=== PATIENT | male | born 1990 | race Caucasian/White ===

== ENCOUNTER 2018-03-16 13:33 | Emergency (ER) | payer MEDICAID ==
[~2018-03-16] VITALS: Ht 198.1 cm; Wt 71.9 kg
[~2018-03-16 13:33] MED LIST: CITA-278 PO; CITA-311 PO; CITA20TA19 PO; CLON-527 PO; CLON2TAB PO; DIVA-76 PO; DIVA500T2 PO
[2018-03-16 13:37] VITALS: BP 125/81
[2018-03-16] MEDS ORDERED: CITA20TA19 PO (14:12)
[2018-03-16] MEDS ORDERED: DIVA500T4 PO (14:12)
== END 2018-03-16 14:40 | disposition home or self-care (01) ==
LOC: ER 13:34
DX: Z76.0 Encounter for issue of repeat prescription (principal); Z86.69 Personal history of other diseases of the nervous system and sense organs; Z90.49 Acquired absence of other specified parts of digestive tract; Z56.0 Unemployment, unspecified; Z79.899 Other long term (current) drug therapy
CPT/HCPCS: 99283

== ENCOUNTER 2019-04-04 21:29 | Emergency (ER) | payer MEDICAID ==
[~2019-04-04] VITALS: Ht 185.4 cm; Wt 96.0 kg
[~2019-04-04 21:29] MED LIST changes: -CITA-278 PO; -DIVA-76 PO
[2019-04-04 21:38] VITALS: BP 130/81
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
[2019-04-04] MEDS ORDERED: CITA-311 PO (22:49)
[2019-04-04] MEDS ORDERED: LORazepam 1 MG tablet PO ONE (22:55)
== END 2019-04-04 23:09 | disposition home or self-care (01) ==
LOC: ER 21:30
DX: F43.10 Post-traumatic stress disorder, unspecified (principal); Z76.0 Encounter for issue of repeat prescription; F41.8 Other specified anxiety disorders; F17.200 Nicotine dependence, unspecified, uncomplicated; Z56.0 Unemployment, unspecified; Z87.442 Personal history of urinary calculi; Z79.899 Other long term (current) drug therapy
CPT/HCPCS: 99283

== ENCOUNTER 2019-09-02 09:43 | Inpatient (IN) | payer MEDICAID ==
[~2019-09-02] VITALS: Ht 185.4 cm; Wt 94.3 kg
[2019-09-02] MEDS ORDERED: mag hydrox/Alum hydrox/simeth 30ml oral suspension PO PRN (12:10)
[2019-09-02] MEDS ORDERED: loperamide 2mg capsule PO PRN (12:10)
[2019-09-02] MEDS ORDERED: haloperidol 5mg tablet PO PRN (12:10)
[2019-09-02] MEDS ORDERED: traZODone 50mg tablet PO PRN (12:10)
[2019-09-02] MEDS ORDERED: magnesium hydroxide 30ml (MOM) UD suspension PO PRN (12:10)
[2019-09-02] MEDS ORDERED: LORazepam 1 MG tablet PO PRN (12:10)
[2019-09-02] MEDS ORDERED: LORazepam 0.5 MG tablet PO PRN (12:10)
[2019-09-02] MEDS ORDERED: diphenhydrAMINE 25mg capsule PO PRN (12:10)
[2019-09-02] MEDS ORDERED: acetaminophen 325mg tablet PO PRN ×2 (12:10)
[2019-09-02] MEDS ORDERED: nicotine 21mg patch - 24 hr TD ONE (16:50)
--- NOTE | 2019-09-02 17:46 | NUR ---
Admint Note: Nursing Progress Note:[] Legal hold:[] Client on voluntary/involuntary status for GD/DTS/DTO[]. Report received from nurse with use of SBAR[]. Why are they here:[]. Assessment What has happened this shift:[] S/I, H/I:[] A/VH: [] Sleep:[] ADL's:[] Group attendance:[] Were meds taken:[] Any med S/E[] Mental Status Exam Appearance:[] Eye contact:[] Behavior:[] Speech:[] Mood:[] Affect:[] Thought process:[] Thought Content:[] Cognition:[] Insight:[] Judgment:[] Interventions PRN's used:[] Therapeutic interventions:[] Restraints/seclusion/emergency medication:[] Justification of Continued Inpatient Treatment:[]
--- NOTE | 2019-09-02 17:49 | NUR ---
Admit Note: Legal Status: 5150 Pt admitted at 1115 for DTS from [facility]. Pt had planned to overdose on Seroqueldue to a relapse of IV Heroin. Pt has a long history of depression and opiate addiction. He is currently on Methadone from [facility]. A message was left with them requesting a fax of his Rx to [facility] per the pt. Pt's belongings inventoried and secured by DANYEL Guillen PRN's: Ativan 2mg, Benadryl 50mg started nicotine patch late Pt is a heavy smoker he declined smoking cessation information or resources.
[2019-09-02] MEDS: LORazepam 1 MG tablet PO PRN (19:04)
[2019-09-02] MEDS: NICOTINE POLACRILEX 2 MG LOZENGE BC PRN (19:06)
[2019-09-02 20:04] VITALS: BP 90/68
--- NOTE | 2019-09-03 01:02 | NUR ---
Nursing Progress Note: Legal hold: 5150 Client on involuntary hold for being a danger to himself Report received from Franck CADE with use of SBAR format Why are they here: The patient is a 28 year old male who was admitted to [facility] from [facility] where he was placed on a 5150 for being a danger to himself. He reported he had relapsed on heroin. In the ER he reported that he was suicidal to overdose on Seroquel (an old rx of his brothers) and Heroin. He stole money from his mother for the drugs. He did not take the overdose of Seroquel. Reported increased depression and anxiety over the month. Stated with the covid-19 virus his classes were cancelled and he has been unable to work. He has been on methadone through [facility]. He reports he has had racing thoughts, anxiety and bad depression for one month. He has not been getting out of bed and his appetite had been "terrible" with a 20lb weight loss on the past month. [facility] and while there he was diagnosed with bipolar. [facility] in [facility] he was placed on Depakote, Celexa and Klonopin and he felt he did well on that combination. At some point after that time he was seen at [facility] and was told he did not have bipolar and took him off his medications. He currently lives with his mother and grandmother. He denies that he is currently on probation or parole. Assessment What has happened this shift: The patient was seen in his room where he had spent the entire evening. He stated that his anxiety was very high and was wanting to have ativan. The patient wanted the two mg dose but it was explained to him that dose was to be given in conjunction with haldol and benadryl. Discussed with Marcio Schroeder the patient request for additional ativan and orders were received. The patient was cautioned that Ativan was addictive and he should work on his coping skills to deal with his anxiety when ever possible. He was able to identify anxiety triggers when he is put into new social situations and people. He reported voices in the ER but he is denying them this evening. S/I, H/I: suicidal thoughts to overdose but doing better since admit. A/VH: denies ADL's: Appeared clean was was dressed appropriately for the unit. Were meds taken: no Scheduled medications but did have PRN ativan, nicotine lozenge Any med S/E none noted or reported Mental Status Exam Appearance: Appears to be his stated age. Has longer red hair which appeared clean and well groomed Eye contact: intermittent Behavior: Isolated to his bed but friendly and cooperative with the evening assessment Speech: spontaneous, moderate rate and volume. Mood: Depressed and anxious Affect: blunted Thought process: racing thoughts but logical and linear Thought Content: medication focused, situational difficulties. Cognition: alert and oriented Insight: fair Judgment: impaired Interventions PRN's used: Prn Ativan and Trazodone Therapeutic interventions: One to one with the patient to review medication orders and make him aware of the treatment plan. Assessed for the severity of depressive symptoms and self harm risk. The patient is on q 15 minute safety checks and has not had any self injurious behaviors reported or observed Justification of Continued Inpatient Treatment: The patient was just admitted for being a danger to himself and has not yet been evaluated by the psychiatrist
[2019-09-03 08:00] VITALS: BP 107/63
[2019-09-03 08:00] LABS: HEMOGLOBIN A1C 4.9 % (4.5-6.2)
[2019-09-03 08:11] LABS: CHOL/HDL RATIO 3.4 (0.00-4.99); CHOLESTEROL 135 MG/DL (0-200); HDL CHOLESTEROL 40 MG/DL (35-60); LDL CHOLESTEROL 82 MG/DL (50-100); TRIGLYCERIDES 79 MG/DL (20-135)
[2019-09-03] MEDS: nicotine 21mg patch - 24 hr TD SCH (08:59)
[2019-09-03] MEDS: LORazepam 1 MG tablet PO PRN ×3 (09:03→21:13)
--- NOTE | 2019-09-03 13:55 | NUR ---
Malnutrition consult: Pt noted to have normal strength, no edema/wounds, no wt loss hx, and PO 100% regular diet meeting needs. Does not meet malnutrition criteria at this time. Addendum: 09/03/19 at [address] Amended: Links added.
[2019-09-03] MEDS ORDERED: methadone 10mg tablet PO ONE (14:50)
--- NOTE | 2019-09-03 15:55 | NUR ---
Nursing Progress Note: Legal hold: 5150/DTS Report received from RN with use of SBAR Why are they here: The patient is a 28 year old male who was admitted to [facility] from [facility] ER where he was placed on a 5150 for being a danger to himself. He reported he had relapsed on heroin. In the ER he reported that he was suicidal to overdose on Seroquel (an old rx of his brothers) and Heroin. He stole money from his mother for the drugs. He did not take the overdose of Seroquel. Reported increased depression and anxiety over the month. Stated with the covid-19 virus his classes were cancelled and he has been unable to work. He has been on methadone through [facility]. He reports he has had racing thoughts, anxiety and bad depression for one month. He has not been getting out of bed and his appetite had been "terrible" with a 20lb weight loss on the past month. He stated [facility] and while there he was diagnosed with bipolar. While in [facility] he was placed on Depakote, Celexa and Klonopin and he felt he did well on that combination. At some point after that time he was seen at [facility] and was told he did not have bipolar and took him off his medications. He currently lives with his mother and grandmother. He denies that he is currently on probation or parole. Assessment Received Pt in bed sleeping w/o distress at beginning of shift. Pt awoke for vitals and was pleasant and cooperative during assessments. Pt ate breakfast and all meals in room/appetite good. Pt c/o anxiety and asked about getting his methadone. He was given ativan with good effect. Pt signed a [facility] for [facility] where he gets his methadone. This RN spoke with [facility] staff who stated his daily dose is 50mg QD: this information was passed to Maria Isabel ARREGUIN. Pt received his methadone @ 1525. Pt has a full range of affect and mildly anxious in pleasand mood. He spent time reading and resting in bed for a good portion of the day. Pt continues to endorse less intense suicidal thoughts and reports thinking more clearly. S/I, H/I: SI not as strong A/VH: denies ADL's: Independent. Pt groomed Were meds taken: Yes Any med S/E: None noted or reported Mental Status Exam Appearance: Pt appears stated age/clean and well groomed Eye contact: Good Behavior: Isolated to his bed but friendly and cooperative with assessments Speech: Clear/coherent Mood: Mildly depressed and anxious Affect: Good range Thought process: Logical and linear Thought Content: Medication focused Cognition: Alert and oriented Insight: Fair Judgment: Impaired Interventions PRN's used: Ativan Therapeutic interventions: One to one with the patient to review medication orders and make him aware of the treatment plan. Assessed for the severity of depressive symptoms and self harm risk. The patient is on q 15 minute safety checks and has not had any self injurious behaviors reported or observed Justification of Continued Inpatient Treatment: The patient continues to endorse suicidal thoughts. Pt needs to be in a safe environment and stablized on medications.
[2019-09-03 19:00] VITALS: BP 98/74
[2019-09-03] MEDS: NICOTINE POLACRILEX 2 MG LOZENGE BC PRN (21:13)
[2019-09-03] MEDS: divalproex sod 250mg ER (24-hour) tablet PO SCH (21:13)
--- NOTE | 2019-09-04 01:49 | NUR ---
Nursing Progress Note: Legal hold: 5150 Client on involuntary status for DTS Report received from nurse with use of SBAR: RAYO Carranza Why are they here: Patient is a 28 year old male who was admitted to [facility] from [facility] ER where he was placed on a 5150 for being a danger to himself. He reported he had relapsed on heroin. In the ER pt. reported that he was suicidal with a plan to overdose on Seroquel (an old rx of his brothers) and Heroin. He stole money from his mother for the drugs, but did not take the overdose of Seroquel. Then started having V/COVINGTON of demons. Pt. reported increased depression and anxiety over the month r/t isolation from the Covid-19 virus (his classes were cancelled and he has been unable to work). Pt. also reported he has not been getting out of bed, and his appetite had been "terrible" with a 20lb weight loss over the past month. He stated he was in [place] years at one point and while there he was diagnosed with bipolar. At some point after that time he was seen at [facility] and was told he did not have bipolar and taken off his medications. Pt. currently lives with his mother and grandmother. He denies that he is currently on probation or parole. Assessment What has happened this shift: Pt. up in the Group Room at the beginning of the shift playing a board game with another patient, he appears to be interacting appropriately. This conventional underwriter introduced self and established rapport, pt presents as pleasant, however anxious, and guarded. He reports that he would like another Ativan when it is available. Later, pt. is observed to be pacing in the hallway, PRN Ativan administered along with HS medication. Attempted to complete 1:1, however pt. remains guarded with conversation and appears to be minimizing any MH s/s. He denies any S/I, depression, A/V/COVINGTON, and no delusional statements made. Pt. does admit to some ongoing anxiety, however when questioned by this conventional underwriter what he is feeling anxious about, pt. states, "Mostly just getting back home and returning to work." Pt. requests to take a shower at and then lays in bed reading a book, will continue to monitor. S/I, H/I: Pt. denies A/VH: Pt. denies, does not appear internally preoccupied Sleep: Pt. is observed to be laying in bed reading at HS, later appears to be resting comfortably. ADL's: Independent Group attendance: N/A Were meds taken: Yes Any med S/E: None Mental Status Exam Appearance: Neat and appropriately dressed. Pt. showered this shift Eye contact: Fair Behavior: Cooperative, anxious, and guarded Speech: Soft, responds only minimally to questions Mood: Pleasant, however anxious Affect: Constricted Thought process: Poverty of thought Thought Content: Preoccupation with anxiety and desire to discharge Cognition: A&O X4 Insight: Poor Judgment: Poor Interventions PRN's used: Ativan and Nicotine Lozenge Therapeutic interventions: Introduced self and established rapport, ensured contract for safety, maintained a safe and therapeutic environment, provided clear and simple instructions, monitored behavior and need for intervention, and maintained Q 15min safety checks. Restraints/seclusion/emergency medication: N/A Justification of Continued Inpatient Treatment: KALLIE Ortiz, pt. continues to require medication titration, while maintaining a therapeutic environment to prevent readmission.
[2019-09-04] MEDS ORDERED: METH-603 PO (06:18)
[2019-09-04 07:49] VITALS: BP 102/61
[2019-09-04] MEDS: methadone 10mg tablet PO SCH (08:04)
[2019-09-04] MEDS: venlafaxine XR 37.5mg cap (Q24H) PO SCH (08:04)
[2019-09-04] MEDS: nicotine 21mg patch - 24 hr TD SCH (08:06)
[2019-09-04] MEDS: LORazepam 1 MG tablet PO PRN ×3 (08:15→20:36)
--- NOTE | 2019-09-04 09:50 | NUR ---
Assessment SS met with pt and engaged him in completing his psychosocial assessment, pt signed CLINTON & #9. Stephie Sanchez, CUSHION INSTALLER Addendum: 09/05/19 at 0926 by Stephie JUDGE Amended: Links added.
[2019-09-04] MEDS ORDERED: magnesium citrate 296ml oral solution PO PRN (13:00)
[2019-09-04] MEDS ORDERED: ATI1T PO (13:04)
[2019-09-04] MEDS ORDERED: EFF37.5XRC PO (13:04)
[2019-09-04] MEDS ORDERED: NICO-687 TD (13:04)
[2019-09-04] MEDS ORDERED: DIVA500T9 PO (13:04)
--- NOTE | 2019-09-04 14:28 | NUR ---
Nursing Progress Note: Cj Legal hold: 5150 expires 09/05/2019 @2130 Client on 5150 status for DTS Report received from EMELY Nunes with use of SBAR Why are they here: Patient is a 28 year old male who was admitted to [facility] from [facility] ER where he was placed on a 5150 for being a danger to himself. He reported he had relapsed on heroin. In the ER pt. reported that he was suicidal with a plan to overdose on Seroquel (an old rx of his brothers) and Heroin. He stole money from his mother for the drugs, but did not take the overdose of Seroquel. Then started having V/COVINGTON of demons. Pt. reported increased depression and anxiety over the month r/t isolation from the Covid-19 virus (his classes were cancelled and he has been unable to work). Pt. also reported he has not been getting out of bed, and his appetite had been "terrible" with a 20lb weight loss over the past month. He stated he was in residential for 3 and half years at one point and while there he was diagnosed with bipolar. At some point after that time he was seen at [facility] and was told he did not have bipolar and taken off his medications. Pt. currently lives with his mother and grandmother. He denies that he is currently on probation or parole. Assessment What has happened this shift: Patient isolating in room. States he is feeling better. Requested ativan for anxiety of 7/10. Spoke a bit about the medication changes that occurred when he was released from residential. States he was doing rather well until everything got shut down. Without any distractions, I just allowed myself to be overcome. Currently denying thoughts for SI. Did c/o of constipation and was administered MOM. Cooperative with staff and others throughout the day. Appears more upbeat when speaking with others. S/I, H/I: Denies A/VH: Denies Sleep: 6.00 hours ADL's: Independent Group attendance: No current groups due to COVID-19 Were meds taken: Yes Any med S/E: None Mental Status Exam Appearance: Neat and appropriately dressed. Eye contact: Fair Behavior: Cooperative, anxious, and guarded Speech: Soft, responds only minimally to questions Mood: Pleasant, however anxious Affect: Blunted Thought process: Poverty of thought Thought Content: Preoccupation with anxiety and desire to discharge Cognition: A&O X4 Insight: Poor Judgment: Poor Interventions PRN's used: Ativan Therapeutic interventions: Introduced self and established rapport, ensured contract for safety, maintained a safe and therapeutic environment, provided clear and simple instructions, monitored behavior and need for intervention, and maintained Q 15min safety checks. Restraints/seclusion/emergency medication: N/A Justification of Continued Inpatient Treatment: KALLIE Ortiz, pt. continues to require medication titration, while maintaining a therapeutic environment to prevent readmission.
[2019-09-04 20:00] VITALS: BP 113/66
[2019-09-04] MEDS: divalproex sod 250mg ER (24-hour) tablet PO SCH (20:35)
[2019-09-04] MEDS: NICOTINE POLACRILEX 2 MG LOZENGE BC PRN (20:36)
--- NOTE | 2019-09-04 22:50 | NUR ---
Nursing Progress Note: Legal hold: 5150 Client on involuntary status for DTS Report received from nurse with use of SBAR: RAYO Persaud Why are they here: Patient is a 28 year old male who was admitted to [facility] from [facility] ER where he was placed on a 5150 for being a danger to himself. He reported he had relapsed on heroin. In the ER pt. reported that he was suicidal with a plan to overdose on Seroquel (an old rx of his brothers) and Heroin. He stole money from his mother for the drugs, but did not take the overdose of Seroquel. Then started having V/COVINGTON of demons. Pt. reported increased depression and anxiety over the month r/t isolation from the Covid-19 virus (his classes were cancelled and he has been unable to work). Pt. also reported he has not been getting out of bed, and his appetite had been "terrible" with a 20lb weight loss over the past month. He stated he was in care home for 3 and half years at one point and while there he was diagnosed with bipolar. At some point after that time he was seen at [facility] and was told he did not have bipolar and taken off his medications. Pt. currently lives with his mother and grandmother. He denies that he is currently on probation or parole. Assessment What has happened this shift: Pt. laying in bed reading a book at the beginning of the shift, he continues to present as pleasant, slightly anxious, and guarded. He requests PRN Ativan when available, and was educated by this report writer that it was too soon for administration, pt. reported understanding. PRN Ativan administered later at , and 1:1 completed at bedside. Pt. 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 reports that he has a good relationship with his mother, and she is supportive of him. He remains guarded with conversation and continues to minimize any M/H s/s, however appears to be hopeful about the future and excited about discharge. Pt. also endorses that he plans to stay away from drugs, and reports the Methadone is helping him with this. This report writer questioned pt. regarding any further constipation and need for magnesium citrate and pt. denied, he reported he was able to have a BM today. S/I, H/I: Pt. denies A/VH: Pt. denies, does not appear internally preoccupied Sleep: Pt. reports that he slept well last night ADL's: Independent Group attendance: N/A Were meds taken: Yes Any med S/E: None Mental Status Exam Appearance: Neat and appropriately dressed. Eye contact: Fair Behavior: Cooperative, anxious, and guarded Speech: Soft, responds only minimally to questions Mood: Pleasant, slightly anxious Affect: Blunted Thought process: Poverty of thought Thought Content: Preoccupation desire to discharge Cognition: A&O X4 Insight: Fair Judgment: Fair Interventions PRN's used: Ativan and Nicotine Lozenge Therapeutic interventions: Ensured contract for safety, maintained a safe and therapeutic environment, provided clear and simple instructions, monitored behavior and need for intervention, provided active listening and positive encouragement, and maintained Q 15min safety checks. Restraints/seclusion/emergency medication: N/A Justification of Continued Inpatient Treatment: KALLIE Ortiz, pt. continues to require medication titration, while maintaining a therapeutic environment to prevent readmission. The plan is for him to discharge home tomorrow and F/U with Nathaly.
[2019-09-05 07:50] VITALS: BP 93/63
[2019-09-05] MEDS: nicotine 21mg patch - 24 hr TD SCH (07:58)
[2019-09-05] MEDS: methadone 10mg tablet PO SCH (07:58)
[2019-09-05] MEDS: LORazepam 1 MG tablet PO PRN (07:58)
[2019-09-05] MEDS: venlafaxine XR 37.5mg cap (Q24H) PO SCH (08:16)
[2019-09-05] MEDS ORDERED: methadone 10mg tablet PO ONE (10:50)
--- NOTE | 2019-09-05 11:08 | NUR ---
DISCHARGE NOTE: Patient escorted from unit at 1106 accompanied by MYLES Noel. All belongings inventoried and returned to patient upon discharge. Patient denies symptoms of depression or SI. States he has a safety plan in the event he begins to feel suicidal. Patient is aware that he will not be able to obtain his Methadone dose for tomorrow (Saturday) and is willing to wait until Saturday Morning.
== END 2019-09-05 11:06 | disposition home or self-care (01) | DRG 753 ==
LOC: ADULT MH 11:44
PROVIDERS: ADMIT Psychiatry & Neurology Psychiatry; ATTEND Psychiatry & Neurology Psychiatry
DX: F31.30 Bipolar disorder, current episode depressed, mild or moderate severity, unspecified (principal); R45.851 Suicidal ideations; E78.1 Pure hyperglyceridemia; F11.10 Opioid abuse, uncomplicated; F41.9 Anxiety disorder, unspecified; F43.10 Post-traumatic stress disorder, unspecified; F90.9 Attention-deficit hyperactivity disorder, unspecified type; R63.4 Abnormal weight loss; Z68.27 Body mass index [BMI] 27.0-27.9, adult; F17.200 Nicotine dependence, unspecified, uncomplicated; Z90.49 Acquired absence of other specified parts of digestive tract
CPT/HCPCS: 36415; 80061; 83036; 87081; 99285; Q0163

== ENCOUNTER 2019-09-06 20:41 | Emergency (ER) | payer MEDICAID ==
[~2019-09-06] VITALS: Ht 185.4 cm; Wt 95.5 kg
[~2019-09-06 20:41] MED LIST changes: +ATI1T PO; +DIVA500T9 PO; +EFF37.5XRC PO; +METH-603 PO; +NICO-687 TD
--- NOTE | 2019-09-06 21:23 | NUR ---
C/O S/I, Rx ativan. Recent heroin use about four hours ago. Hx depression.
[2019-09-06 21:34] LABS: BASOPHILS % (AUTO) 0.3 % (0-1); EOSINOPHILS # (AUTO) 0.2 X10'3 (0-0.9); EOSINOPHILS % (AUTO) 1.3 % (0-6); HEMATOCRIT 41.7 % (42.0-52.0); HEMOGLOBIN 14.4 g/dl (14.0-17.9); LYMPHOCYTES # (AUTO) 3.3 X10'3 (1.1-4.8); LYMPHOCYTES % (AUTO) 23.2 % (21-51); MEAN CORPUSCULAR HEMOGLOBIN 31.4 PG (27.0-31.0); MEAN CORPUSCULAR HGB CONC 34.6 g/dL (33.0-36.5); MEAN PLATELET VOLUME 9.1 FL (7.4-10.4); MONOCYTES # (AUTO) 0.8 X10'3 (0-0.9); MONOCYTES % (AUTO) 5.7 % (2-12); NEUTROPHILS # (AUTO) 9.8 X10'3 (1.8-7.7); NEUTROPHILS % (AUTO) 69.5 % (42-75); PLATELET COUNT 197 X10'3 (140-440); RED BLOOD COUNT 4.58 X10'6 (4.70-6.10); RED CELL DISTRIBUTION WIDTH 12.5 % (11.5-14.5); WHITE BLOOD COUNT 14.1 X10'3 (4.5-11.0)
[2019-09-06 21:51] LABS: ALANINE AMINOTRANSFERASE 63 U/L (12-78); ALBUMIN 3.7 G/DL (3.4-5.0); ALBUMIN/GLOBULIN RATIO 1.1 (1.1-1.5); ALKALINE PHOSPHATASE 118 IU/L (46-116); ANION GAP 6 (8-16); ASPARTATE AMINO TRANSFERASE 41 U/L (10-37); BILIRUBIN,TOTAL 0.5 MG/DL (0.1-1.0); BLOOD UREA NITROGEN 15 MG/DL (7-18); BUN/CREATININE RATIO 12.9 (5.4-32.0); CALCIUM 8.8 MG/DL (8.5-10.1); CHLORIDE 105 MMOL/L (99-107); CREATININE 1.16 MG/DL (0.60-1.10); GLUCOSE 98 MG/DL (70-104); POTASSIUM 4.3 MMOL/L (3.5-5.1); SODIUM 142 MMOL/L (135-145); TOTAL CARBON DIOXIDE 31.4 MMOL/L (24-32); TOTAL PROTEIN 7.1 G/DL (6.4-8.2); eGFR 75 ML/MIN
[2019-09-06 21:54] LABS: ETHANOL < 0.010 GM/DL (0.0-0.010)
--- NOTE | 2019-09-06 21:57 | NUR ---
Patient is resting quietly now, he is cooperative.
[2019-09-06 22:04] LABS: URINE AMPHETAMINE SCREEN NEGATIVE (Neg); URINE BARBITUATE SCREEN NEGATIVE (Neg); URINE BENZODIAZEPINES SCREEN POSITIVE (Neg); URINE CANNABINOID SCREEN NEGATIVE (Neg); URINE COCAINE SCREEN NEGATIVE (Neg); URINE METHADONE SCREEN POSITIVE (Neg); URINE OPIATE SCREEN POSITIVE (Neg); URINE PHENCYCLIDINE SCREEN NEGATIVE (Neg)
--- NOTE | 2019-09-06 22:15 | NUR ---
PT IS SLEEPING NO SIGNS OF DISTRESS.
--- NOTE | 2019-09-06 23:13 | NUR ---
PT IS SLEEPING SUPINE. NO SIGNS OF DISTRESS
--- NOTE | 2019-09-07 00:42 | NUR ---
RELIEVING RN FOR BREAK, PT IS SLEEPING, RESP EVEN AND UNLABORED
--- NOTE | 2019-09-07 01:14 | NUR ---
PT IS SLEEPING. NO SIGNS OF DISTRESS
[2019-09-07] MEDS ORDERED: DIVA-76 PO ×2 (02:11)
[2019-09-07] MEDS ORDERED: EFF37.5XRC PO (02:11)
[2019-09-07] MEDS ORDERED: LORA-269 PO (02:11)
[2019-09-07] MEDS ORDERED: NICO-687 TD (02:11)
--- NOTE | 2019-09-07 02:25 | NUR ---
PT IS SLEEPING. NO SIGNS OF DISTRESS
--- NOTE | 2019-09-07 03:01 | NUR ---
PT IS SLEEPING. NO SIGNS OF DISTRESS
--- NOTE | 2019-09-07 03:51 | NUR ---
PT IS SLEEPING. NO SIGNS OF DISTRESS
--- NOTE | 2019-09-07 05:21 | NUR ---
PT IS SLEEPING. NO SIGNS OF DISTRESS
--- NOTE | 2019-09-07 06:14 | NUR ---
PT IS USING BATHROOM
[2019-09-07] MEDS ORDERED: methadone 10mg tablet PO SCH (08:00)
[2019-09-07] MEDS ORDERED: venlafaxine XR 37.5mg cap (Q24H) PO SCH (08:00)
[2019-09-07] MEDS ORDERED: divalproex sodium 500mg tablet.DR PO SCH ×2 (08:00→21:00)
[2019-09-07] MEDS: LORazepam 1 MG tablet PO SCH ×3 (08:50→17:21)
--- NOTE | 2019-09-07 16:18 | NUR ---
[facility] at bedside talking to pt., pt. appears calm and cooperative.
[2019-09-07 17:31] VITALS: BP 144/100
== END 2019-09-07 17:22 | disposition home or self-care (01) ==
LOC: ER 20:41
DX: R45.851 Suicidal ideations (principal); F41.9 Anxiety disorder, unspecified; F11.90 Opioid use, unspecified, uncomplicated; Z87.442 Personal history of urinary calculi; Z86.69 Personal history of other diseases of the nervous system and sense organs; Z90.49 Acquired absence of other specified parts of digestive tract; Z56.0 Unemployment, unspecified; Z79.899 Other long term (current) drug therapy
CPT/HCPCS: 36415; 80053; 80164; 80305; 80320; 85025; 99284

== ENCOUNTER 2019-09-30 14:42 | Emergency (ER) | payer MEDICAID ==
[~2019-09-30] VITALS: Ht 185.4 cm; Wt 90.0 kg
[~2019-09-30 14:42] MED LIST changes: -ATI1T PO; -CITA-311 PO; -CITA20TA19 PO; -CLON-527 PO; -CLON2TAB PO; +DIVA-76 PO; -DIVA500T2 PO; -DIVA500T9 PO; +LORA-269 PO
[2019-09-30] MEDS ORDERED: LORazepam 2 mg/ml vial IV ONE (14:50)
[2019-09-30 14:53] VITALS: BP 133/78
[2019-09-30] MEDS ORDERED: normal saline 1000ml 1,000 ML IV ONE (14:55)
[2019-09-30] MEDS ORDERED: levetiracetam inj 1,500 MG in normal saline 100ml IV soln 85 ML IV ONE (14:55)
[2019-09-30] MEDS ORDERED: ondansetron/PF 4mg/2ml inj IV ONE (14:55)
[2019-09-30] MEDS ORDERED: VENL37.55 PO (15:45)
[2019-09-30] MEDS ORDERED: DIVA500T9 PO (15:45)
[2019-09-30] MEDS ORDERED: LORA-269 PO (15:45)
== END 2019-09-30 15:58 | disposition home or self-care (01) ==
LOC: ER 14:43
DX: F41.9 Anxiety disorder, unspecified (principal); Z76.0 Encounter for issue of repeat prescription; F11.90 Opioid use, unspecified, uncomplicated; Z90.89 Acquired absence of other organs; Z86.69 Personal history of other diseases of the nervous system and sense organs; Z87.442 Personal history of urinary calculi; Z56.0 Unemployment, unspecified; Z79.899 Other long term (current) drug therapy
CPT/HCPCS: 99281

== ENCOUNTER 2020-05-13 16:41 | Emergency (ER) | payer MEDICAID ==
[~2020-05-13] VITALS: Ht 185.4 cm; Wt 93.2 kg
[~2020-05-13 16:41] MED LIST changes: +VENL37.55 PO
[2020-05-13] MEDS ORDERED: normal saline 1000ml 1,000 ML IV ONE (17:10)
[2020-05-13 17:51] VITALS: BP 134/85
[2020-05-13 18:05] LABS: BASOPHILS # (AUTO) 0.1 X10'3 (0-0.2); BASOPHILS % (AUTO) 0.5 % (0-1); EOSINOPHILS # (AUTO) 0.2 X10'3 (0-0.9); EOSINOPHILS % (AUTO) 1.2 % (0-6); HEMATOCRIT 43.4 % (42.0-52.0); LYMPHOCYTES # (AUTO) 2.6 X10'3 (1.1-4.8); LYMPHOCYTES % (AUTO) 17.2 % (21-51); MEAN CORPUSCULAR HEMOGLOBIN 32.5 PG (27.0-31.0); MEAN CORPUSCULAR HGB CONC 34.5 g/dL (33.0-36.5); MEAN CORPUSCULAR VOLUME 94.2 FL (78-98); MEAN PLATELET VOLUME 8.3 FL (7.4-10.4); MONOCYTES # (AUTO) 1.2 X10'3 (0-0.9); MONOCYTES % (AUTO) 7.8 % (2-12); NEUTROPHILS # (AUTO) 11.1 X10'3 (1.8-7.7); NEUTROPHILS % (AUTO) 73.3 % (42-75); PLATELET COUNT 249 X10'3 (140-440); RED BLOOD COUNT 4.61 X10'6 (4.70-6.10); RED CELL DISTRIBUTION WIDTH 12.1 % (11.5-14.5); WHITE BLOOD COUNT 15.2 X10'3 (4.5-11.0)
[2020-05-13 18:20] LABS: ALANINE AMINOTRANSFERASE 91 U/L (12-78); ALBUMIN 4.6 G/DL (3.4-5.0); ALBUMIN/GLOBULIN RATIO 1.2 (1.1-1.5); ALKALINE PHOSPHATASE 152 IU/L (46-116); ANION GAP 7 (8-16); ASPARTATE AMINO TRANSFERASE 42 U/L (10-37); BILIRUBIN,TOTAL 0.4 MG/DL (0.1-1.0); BLOOD UREA NITROGEN 17 MG/DL (7-18); BUN/CREATININE RATIO 16.7 (5.4-32.0); CALCIUM 9.8 MG/DL (8.5-10.1); CHLORIDE 102 MMOL/L (99-107); CREATININE 1.02 MG/DL (0.60-1.10); GLUCOSE 80 MG/DL (70-104); POTASSIUM 3.9 MMOL/L (3.5-5.1); SODIUM 140 MMOL/L (135-145); TOTAL CARBON DIOXIDE 30.7 MMOL/L (24-32); TOTAL PROTEIN 8.6 G/DL (6.4-8.2); eGFR 86 ML/MIN
[2020-05-13 18:30] LABS: ETHANOL < 0.010 GM/DL (0.0-0.010); MAGNESIUM 2.2 MG/DL (1.5-2.4)
[2020-05-13] MEDS ORDERED: VENL37.55 PO (20:39)
[2020-05-13] MEDS ORDERED: LORA-269 PO (20:39)
[2020-05-13] MEDS ORDERED: DIVA500T9 PO (20:39)
[2020-05-13] MEDS ORDERED: LORazepam 1 MG tablet PO ONE (20:40)
== END 2020-05-13 21:16 | disposition home or self-care (01) ==
LOC: ER 16:44
DX: R07.89 Other chest pain (principal); E86.0 Dehydration; F41.9 Anxiety disorder, unspecified; F11.90 Opioid use, unspecified, uncomplicated; Z76.0 Encounter for issue of repeat prescription; Z86.69 Personal history of other diseases of the nervous system and sense organs; Z87.440 Personal history of urinary (tract) infections; Z90.89 Acquired absence of other organs; Z56.0 Unemployment, unspecified; Z79.899 Other long term (current) drug therapy
CPT/HCPCS: 36415; 71045; 80053; 80320; 83735; 83880; 84443; 84484; 85025; 93005; 96360; 96361; 99285; J7030

== ENCOUNTER 2020-06-25 17:13 | Emergency (ER) | payer MEDICAID ==
[~2020-06-25] VITALS: Ht 185.4 cm; Wt 90.5 kg
--- NOTE | 2020-06-25 18:02 | NUR ---
Patient states he is here for a medical clearance. No signs/symptoms noted.
[2020-06-25 18:41] VITALS: BP 118/74
== END 2020-06-25 18:48 | disposition home or self-care (01) ==
LOC: ER 17:13
DX: Z00.00 Encounter for general adult medical examination without abnormal findings (principal); F41.9 Anxiety disorder, unspecified; F11.90 Opioid use, unspecified, uncomplicated; Z87.442 Personal history of urinary calculi; Z86.69 Personal history of other diseases of the nervous system and sense organs; Z90.49 Acquired absence of other specified parts of digestive tract; Z56.0 Unemployment, unspecified; Z79.899 Other long term (current) drug therapy
CPT/HCPCS: 99281

== ENCOUNTER 2021-01-17 08:20 | Emergency (ER) | payer MEDICAID ==
[~2021-01-17] VITALS: Ht 188 cm; Wt 105.0 kg
[2021-01-17 08:33] VITALS: BP 125/45
[2021-01-17] MEDS ORDERED: ketorolac tromethamine 15mg/ml inj. IM ONE (08:45)
[2021-01-17] MEDS ORDERED: IBUP-1984 PO (08:48)
== END 2021-01-17 08:59 | disposition home or self-care (01) ==
LOC: ER 08:21
DX: M54.5 Low back pain (principal); F41.9 Anxiety disorder, unspecified; F11.90 Opioid use, unspecified, uncomplicated; Z86.69 Personal history of other diseases of the nervous system and sense organs; Z87.442 Personal history of urinary calculi; Z90.89 Acquired absence of other organs; Z56.0 Unemployment, unspecified; Z79.899 Other long term (current) drug therapy
CPT/HCPCS: 96372; 99283; J1885

== ENCOUNTER 2022-01-11 21:11 | Emergency (ER) | payer MEDICAID ==
[~2022-01-11] VITALS: Ht 188 cm; Wt 115.9 kg
[2022-01-11 21:23] VITALS: BP 139/91
[2022-01-11] MEDS ORDERED: cephalexin 250mg capsule PO ONE (22:55)
[2022-01-11] MEDS ORDERED: CEPH-585 PO (22:58)
== END 2022-01-11 23:50 | disposition home or self-care (01) ==
LOC: ER 21:11
DX: L03.115 Cellulitis of right lower limb (principal); R58 Hemorrhage, not elsewhere classified; F41.9 Anxiety disorder, unspecified; Z56.0 Unemployment, unspecified; Z90.49 Acquired absence of other specified parts of digestive tract; Z79.899 Other long term (current) drug therapy
CPT/HCPCS: 99283